=== PATIENT | female | born 1975 | race Two or more races ===

== ENCOUNTER 2023-09-07 16:26 | Emergency (ER) | payer OTHER ==
[~2023-09-07] VITALS: Ht 165.1 cm; Wt 68.1 kg
[2023-09-07 17:17] LABS: Basophils # (auto) 0.1 10 ^3/uL (0-0.2); Basophils % (auto) 0.9 % (0.0-2.0); Lymphocytes # (auto) 2.5 10 ^3/uL (0.4-5.4); Mean Corpuscular Volume 72.8 fL (80.0-100.0); Monocytes # (auto) 0.4 10 ^3/uL (0-1.3); Neutrophils # (auto) 4.3 10 ^3/uL (1.6-8.6)
[2023-09-07] MEDS: MAALOX PLUS or MAALOX 30 ML PO ONE (17:18)
[2023-09-07] MEDS: LIDOCAINE VISCOUS 2% 15ML UD PO ONE (17:18)
[2023-09-07] MEDS: ONDANSETRON ODT 4 MG TAB PO ONE (17:18)
[2023-09-07 17:19] LABS: Eosinophils # (auto) 0.8 10 ^3/uL (0-0.8); Eosinophils % (auto) 9.5 % (0.0-7.0); Hematocrit 36.5 % (36.0-46.0); Hemoglobin 11.5 g/dL (12.2-16.2); Lymphocytes % (auto) 31.5 % (10.0-50.0); Mean Corpuscular Hgb Conc. 31.6 g/dL (32.0-36.0); Monocytes % (auto) 4.9 % (0.0-12.0); Neutrophils % (auto) 53.2 % (37.0-80.0); Red Blood Cells 5.01 10^6/uL (4.0-5.20); Red Cell Distribution Width 17.7 % (11.8-14.3)
[2023-09-07 17:28] LABS: Chloride 104 mmol/L (98-107); Potassium 4.1 mmol/L (3.5-5.1); Sodium 139 mmol/L (136-145)
[2023-09-07 17:29] LABS: Anion Gap 5 (5-15); Calcium 9.6 mg/dL (8.5-10.1); Carbon Dioxide 30 mmol/L (20-30)
[2023-09-07 17:34] LABS: Blood Urea Nitrogen 13 mg/dL (9-23); Glucose 99 mg/dL (74-106)
[2023-09-07] MEDS: HYDROcodone-ACET 5/325MG TAB PO ONE (19:24)
[2023-09-07 19:26] VITALS: BP 116/82; PULSE 97; RESP 16; O2SAT 99
[2023-09-07 20:08] LABS: Urine Bacteria NONE SEEN /hpf (None Seen); Urine Blood Negative /uL (Negative); Urine Clarity Clear (Clear); Urine Color Colorless (Yellow); Urine Protein, UAD Negative (Negative); Urine Specific Gravity 1.005 (1.001-1.035); Urine Urobilinogen Normal (Negative); Urine WBC 2 /hpf (0 - 5)
== END 2023-09-07 20:31 | disposition left against medical advice (07) ==
LOC: ER 16:26 → EDUNIT# 16:26 → EDBD 16:26 → ER 20:31
DX: K21.9 Gastro-esophageal reflux disease without esophagitis (principal); R42 Dizziness and giddiness
CPT/HCPCS: 36415; 80048; 81001; 81025; 84484; 85025; 93005; 99284; Q0162